=== PATIENT | male | born 2000 | race Caucasian/White ===

== ENCOUNTER 2018-07-04 10:27 | Inpatient (IN) | payer MEDICAID ==
[2018-07-04 11:14] LABS: URINE BILIRUBIN NEGATIVE (NEGATIVE); URINE BLOOD NEGATIVE (NEGATIVE); URINE CLARITY Clear (Clear); URINE COLOR Yellow (YELLOW); URINE GLUCOSE (UA) NORMAL (Normal); URINE LEUKOCYTE ESTERASE NEG Leu/uL (Negative); URINE PROTEIN NEGATIVE (NEGATIVE); URINE UROBILINOGEN NORMAL mg/dL (0.2-1.0)
[2018-07-04 11:18] LABS: EOS # 0.1 K/uL (0.0-0.7); EOS % 2.4 % (0.0-4.0); HEMOGLOBIN 14.2 g/dL (12.0-18.0); LYMPH # 3.2 K/uL (1.0-4.3); MONO # 0.5 K/uL (0.0-0.8); NRBC % 0.1 % (0.0-2.0); WHITE BLOOD COUNT 5.1 K/uL (4.8-10.8)
[2018-07-04 11:22] LABS: LYMPH % 62.1 % (20.0-40.0); MEAN CELL VOLUME 76.1 fL (80.0-94.0); MEAN CORPUSCULAR HEMOGLOBIN 25.5 pg (27.0-31.0); MEAN CORPUSCULAR HGB CONC 33.4 g/dL (33.0-37.0); MEAN PLATELET VOLUME 10.4 fL (7.2-11.7); MONO % 9.1 % (0.0-10.0); NEUT # 1.3 K/uL (1.8-7.0); NEUT % 25.4 % (50.0-75.0); RBC 5.59 Mil/uL (4.40-5.90); RED CELL DISTRIBUTION WIDTH 14.4 % (11.5-14.5)
[2018-07-04 11:30] LABS: ALB/GLOB RATIO 1.8 (1.0-2.1); ALBUMIN 4.5 g/dL (3.5-5.0); ALT/SGPT 15 U/L (21-72); AST/SGOT 20 U/L (17-59); BLOOD UREA NITROGEN 14 mg/dL (9-20); CALCIUM 9.4 mg/dl (8.6-10.4); GFR NON-AFRICAN AMERICAN > 60
[2018-07-04 11:42] LABS: BARBITURATES, UR NEGATIVE (NEGATIVE); BENZODIAZEPINES, UR NEGATIVE (NEGATIVE); OPIATES, UR NEGATIVE (NEGATIVE); PHENCYCLIDINE, UR NEGATIVE (NEGATIVE)
--- NOTE | 2018-07-04 12:26 | C.PDOC ---
History Of Present Illness 18 y/o male presents to ED requesting detox from opioids (percocet, roxys promethazine with codeine). States last use was 7am this morning. Denies SI/HI. Time Seen by Provider: 07/04/18 10:39 Chief Complaint (Nursing): Substance Abuse History Per: Patient History/Exam Limitations: no limitations Onset/Duration Of Symptoms: Days Current Symptoms Are (Timing): Still Present Past Medical History Reviewed: Historical Data, Nursing Documentation, Vital Signs Vital Signs: Last Vital Signs Temp 98.5 F 07/04/18 10:43 Pulse 89 07/04/18 10:43 Resp 18 07/04/18 10:43 BP 130/83 07/04/18 10:43 Pulse Ox 99 07/04/18 10:43 Primary Care Provider: FAMILY PROVIDER,NO - Medical History PMH: Anxiety, Asthma, Bipolar Disorder, Depression, Post Traumatic Stress Disorder Family History: States: No Known Family Hx - Social History Hx Alcohol Use: Yes Hx Substance Use: Yes (Opioids) - Immunization History Hx Tetanus Toxoid Vaccination: No Hx Influenza Vaccination: Yes Hx Pneumococcal Vaccination: No Review Of Systems Except As Marked, All Systems Reviewed And Found Negative. Constitutional: Negative for: Fever, Chills Gastrointestinal: Negative for: Nausea, Vomiting Psych: Positive for: Other (substance abuse). Negative for: Suicidal ideation (or homicidal ideation) Physical Exam - Physical Exam Appears: Non-toxic, No Acute Distress Skin: Warm, Dry Head: Normacephalic Eye(s): bilateral: Normal Inspection Oral Mucosa: Moist Neck: Supple Chest: Symmetrical Cardiovascular: Rhythm Regular, No Murmur Respiratory: Normal Breath Sounds, No Rales, No Rhonchi, No Wheezing Gastrointestinal/Abdominal: Soft, No Tenderness Extremity: Bilateral: Normal Color And Temperature, Normal ROM Neurological/Psych: Oriented x3, Normal Speech, Normal Cognition ED Course And Treatment - Laboratory Results Result Diagrams: 07/04/18 11:04 07/04/18 11:04 Lab Results: Total Bilirubin 0.2 mg/dL (0.2-1.3) 07/04/18 11:04 AST 20 U/L (17-59) 07/04/18 11:04 ALT 15 U/L (21-72) L 07/04/18 11:04 Alkaline Phosphatase 66 U/L (38-126) 07/04/18 11:04 Total Protein 7.1 g/dL (6.3-8.3) 07/04/18 11:04 Albumin 4.5 g/dL (3.5-5.0) 07/04/18 11:04 Globulin 2.6 gm/dL (2.2-3.9) 07/04/18 11:04 Albumin/Globulin Ratio 1.8 (1.0-2.1) 07/04/18 11:04 Urine Color Yellow (YELLOW) 07/04/18 10:55 Urine Clarity Clear (Clear) 07/04/18 10:55 Urine pH 7.0 (5.0-8.0) 07/04/18 10:55 Ur Specific Juliette 1.010 (1.003-1.030) 07/04/18 10:55 Urine Protein Negative mg/dL (NEGATIVE) 07/04/18 10:55 Urine Glucose (UA) Normal mg/dL (Normal) 07/04/18 10:55 Urine Ketones Negative mg/dL (NEGATIVE) 07/04/18 10:55 Urine Blood Negative (NEGATIVE) 07/04/18 10:55 Urine Nitrate Negative (NEGATIVE) 07/04/18 10:55 Urine Bilirubin Negative (NEGATIVE) 07/04/18 10:55 Urine Urobilinogen Normal mg/dL (0.2-1.0) 07/04/18 10:55 Ur Leukocyte Esterase Neg Angela/uL (Negative) 07/04/18 10:55 Urine RBC (Auto) < 1 /hpf (0-3) 07/04/18 10:55 O2 Sat by Pulse Oximetry: 99 (RA) Pulse Ox Interpretation: Normal Progress Note: Medically cleared. Accepted to Detox for observation by . Disposition - Disposition Disposition: HOSPITALIZED Disposition Time: 12:56 Condition: STABLE Forms: [facility] (Sami) - Clinical Impression Clinical Impression: Opiate dependence - PA / TRAINING AND DEVELOPMENT HEAD / Resident Statement MD/DO has reviewed & agrees with the documentation as recorded. - Scribe Statement The provider has reviewed the documentation as recorded by the Scribe Cristina Mcdaniels All medical record entries made by the Scribe were at my direction and personally dictated by me. I have reviewed the chart and agree that the record accurately reflects my personal performance of the history, physical exam, medical decision making, and the department course for this patient. I have also personally directed, reviewed, and agree with the discharge instructions and disposition. Decision To Admit - Pt Status Changed To: Hospital Disposition Of: Observation - . Bed Request Type: Detox Admitting Physician: Sari Nesbitt Patient Diagnosis: Opiate dependence
[2018-07-04 14:21] VITALS: RESP 18
--- NOTE | 2018-07-04 15:51 | PCM.BM ---
Treatment Plan Problems - Problems identified on initial assessmt denial Date Initiated: 07/04/18 Time Initiated: 15:50 Assessment reference: NA Status: Active defensive coping Date Initiated: 07/04/18 Time Initiated: 15:50 Assessment reference: NA Status: Active hopelessness Date Initiated: 07/04/18 Time Initiated: 15:51 Assessment reference: NA Status: Active Treatment assets and liabiliti Patient Assests: cooperative, ADL independent, physically healthy, cognitively intact Patient Liabilities: substance abuse - Milieu Protocol Maintain good personal hygiene: daily Encourage regular showers, daily Remind patient to perform daily oral care, daily Assist patient to perform ADL's Conduct patient checks and document Observation sheet: Q15 minutes Maintain personal safety: every shift Educate patient to report safety concerns to staff, every shift Monitor environment for contraband/sharps Medication safety: Monitor for expected outcome, potential side effects: every shift, Assess barriers to learning: every shift, Assess readiness for medication education: every shift
[2018-07-04] MEDS ORDERED: Aluminum Hydroxide/Magnesium Hydroxide Susp (30 mL) PO PRN (19:24)
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
[2018-07-05] MEDS ORDERED: Buprenorphine Hydrochloride 2 mg SL ONE (13:23)
[2018-07-05 16:45] VITALS: O2SAT 96
[2018-07-05 20:08] VITALS: BP 120/72; PULSE 77; TEMP 97.8
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
[2018-07-06] MEDS ORDERED: Buprenorphine Hydrochloride 2 mg SL ONE (10:00)
[2018-07-07] MEDS ORDERED: Buprenorphine Hydrochloride 2 mg SL ONE (10:00)
== END 2018-07-05 21:16 | disposition left against medical advice (07) | DRG 770 ==
LOC: C.ER 10:27 → C.7D 12:55
PROVIDERS: ADMIT Psychiatry & Neurology Psychiatry; ATTEND Psychiatry & Neurology Psychiatry
DX: F11.20 Opioid dependence, uncomplicated (principal); F31.9 Bipolar disorder, unspecified; F12.90 Cannabis use, unspecified, uncomplicated; F43.10 Post-traumatic stress disorder, unspecified; F90.9 Attention-deficit hyperactivity disorder, unspecified type; G47.00 Insomnia, unspecified; F17.210 Nicotine dependence, cigarettes, uncomplicated; I10 Essential (primary) hypertension; J30.2 Other seasonal allergic rhinitis; J45.909 Unspecified asthma, uncomplicated